=== PATIENT | female | born 1970 | race African-American/Black ===

== ENCOUNTER 2017-03-02 16:04 | Inpatient (IN) | payer MEDICAID ==
[~2017-03-02] VITALS: Ht 157.5 cm; Wt 42.0 kg
[2017-03-02 17:28] LABS: BASOPHIL % 0.5 % (0-2); PLATELET COUNT 215 x10^3mcL (130-400); RED CELL DISTRIBUTION WIDTH 13.8 % (11.5-14.5)
[2017-03-02 17:34] LABS: ALBUMIN 3.4 g/dL (3.4-5.0); BILIRUBIN TOTAL 0.2 mg/dL (0.20-1.00); CALCIUM 9.3 mg/dL (8.5-10.1); CARBON DIOXIDE 25.3 mmol/L (21-32); CREATININE SERUM 1.3 mg/dL (0.6-1.0); MAGNESIUM 1.8 mg/dL (1.8-2.4); TOTAL PROTEIN, SERUM 7.7 g/dL (6.4-8.2)
[2017-03-02 17:37] LABS: POTASSIUM SERUM 6.5 mmol/L (3.5-5.1)
[2017-03-02 19:26] LABS: microscopic required? YES; urine erythrocyte NEGATIVE (NEGATIVE)
[2017-03-02 20:27] VITALS: BP 82/48
[2017-03-02 20:53] VITALS: BP 91/60
[2017-03-02 21:57] LABS: CHOLESTEROL/HDL RATIO 3.7; PHOSPHOROUS 5.5 mg/dL (2.5-4.9)
[2017-03-02 21:59] LABS: T3 TOTAL 1.54 ng/mL
[2017-03-02 22:06] LABS: FREE T4 0.96 ng/dL (0.76-1.46); FREE THYROXINE INDEX 2.3 ug/dL (1.4-4.5); T4(THYROXINE) 8.2 ug/dL (4.7-13.3)
[2017-03-02 22:47] LABS: CALCIUM 8.9 mg/dL (8.5-10.1); CARBON DIOXIDE 25.7 mmol/L (21-32); CREATININE SERUM 1.1 mg/dL (0.6-1.0); POTASSIUM SERUM 4.7 mmol/L (3.5-5.1)
[2017-03-03] VITALS (8 sets, daily range): BP systolic 73–148; BP diastolic 36–66; Ht 157.5 cm; Wt 42.0 kg
[2017-03-03 06:31] LABS: CALCIUM 8.6 mg/dL (8.5-10.1); CARBON DIOXIDE 23.4 mmol/L (21-32); CHLORIDE SERUM 104 mmol/L (98-107); GFR1 > 60 mL/min; GLUCOSE SERUM 80 mg/dL (74-106); PHOSPHOROUS 4.2 mg/dL (2.5-4.9); POTASSIUM SERUM 4.9 mmol/L (3.5-5.1); SODIUM SERUM 134 mmol/L (136-145)
[2017-03-03 10:13] LABS: AMPHETAMINE QUAL UR POSITIVE (NEG <=1000)
[2017-03-04] VITALS (9 sets, daily range): BP systolic 73–109; BP diastolic 35–74
[2017-03-04 05:10] LABS: BASOPHIL % 0.6 % (0-2); PLATELET COUNT 198 x10^3mcL (130-400); RED CELL DISTRIBUTION WIDTH 13.4 % (11.5-14.5)
[2017-03-04 05:29] LABS: CALCIUM 8.2 mg/dL (8.5-10.1); CARBON DIOXIDE 23.9 mmol/L (21-32); CHLORIDE SERUM 105 mmol/L (98-107); CREATININE SERUM 0.7 mg/dL (0.6-1.0); GFR1 > 60 mL/min; GLUCOSE SERUM 97 mg/dL (74-106); MAGNESIUM 1.4 mg/dL (1.8-2.4); PHOSPHOROUS 4.2 mg/dL (2.5-4.9); POTASSIUM SERUM 4.3 mmol/L (3.5-5.1); SODIUM SERUM 135 mmol/L (136-145)
[2017-03-05] VITALS (10 sets, daily range): BP systolic 65–138; BP diastolic 28–84
[2017-03-05 07:10] LABS: CALCIUM 7.8 mg/dL (8.5-10.1); CARBON DIOXIDE 23.1 mmol/L (21-32); CHLORIDE SERUM 105 mmol/L (98-107); GFR1 > 60 mL/min; GLUCOSE SERUM 118 mg/dL (74-106); MAGNESIUM 1.5 mg/dL (1.8-2.4); PHOSPHOROUS 3.4 mg/dL (2.5-4.9); POTASSIUM SERUM 4.5 mmol/L (3.5-5.1); SODIUM SERUM 134 mmol/L (136-145)
[2017-03-05 07:54] LABS: BASOPHIL % 0.2 % (0-2); PLATELET COUNT 147 x10^3mcL (130-400); RED CELL DISTRIBUTION WIDTH 13.8 % (11.5-14.5)
[2017-03-05] MEDS ORDERED: LAC PO (12:20)
[2017-03-05] MEDS ORDERED: SYN25 PO (12:21)
[2017-03-05] MEDS ORDERED: LEVAQUIN750 MG PO (12:29)
[2017-03-05] MEDS ORDERED: CLINDAMYCIN HC300 MG PO (12:30)
[2017-03-06 05:53] VITALS: BP 83/47
[2017-03-06 07:13] LABS: BASOPHIL % 0.8 % (0-2); PLATELET COUNT 181 x10^3mcL (130-400); RED CELL DISTRIBUTION WIDTH 13.7 % (11.5-14.5)
[2017-03-06 07:24] LABS: CALCIUM 8.4 mg/dL (8.5-10.1); CARBON DIOXIDE 26.1 mmol/L (21-32); CREATININE SERUM 1.1 mg/dL (0.6-1.0); MAGNESIUM 2.4 mg/dL (1.8-2.4); PHOSPHOROUS 3.7 mg/dL (2.5-4.9); POTASSIUM SERUM 4.8 mmol/L (3.5-5.1)
[2017-03-06 09:55] VITALS: BP 88/40
[2017-03-06 11:53] VITALS: BP 88/40
[2017-03-06 13:00] VITALS: BP 79/41
== END 2017-03-06 16:09 | disposition home health service (06) | DRG 720 ==
LOC: ED 16:04 → DU 18:35 → IC 03-03 16:57 → DU 03-04 15:45
PROVIDERS: Emergency Medicine; Family Medicine; ADMIT Family Medicine
PROC: 05HM33Z Insertion of Infusion Device into Right Internal Jugular Vein, Percutaneous Approach (ICD-10-PCS; principal; 2017-03-03)
PROC: B543ZZA Ultrasonography of Right Jugular Veins, Guidance (ICD-10-PCS; 2017-03-03)
DX: A41.9 Sepsis, unspecified organism (principal); N17.0 Acute kidney failure with tubular necrosis; J69.0 Pneumonitis due to inhalation of food and vomit; R65.21 Severe sepsis with septic shock; G92 Toxic encephalopathy; N39.0 Urinary tract infection, site not specified; T43.621A Poisoning by amphetamines, accidental (unintentional), initial encounter; E87.1 Hypo-osmolality and hyponatremia; E87.5 Hyperkalemia; E83.39 Other disorders of phosphorus metabolism; R55 Syncope and collapse; K70.30 Alcoholic cirrhosis of liver without ascites; E03.9 Hypothyroidism, unspecified; D64.9 Anemia, unspecified; F15.10 Other stimulant abuse, uncomplicated; F10.10 Alcohol abuse, uncomplicated; F17.210 Nicotine dependence, cigarettes, uncomplicated; Z91.19 Patient's noncompliance with other medical treatment and regimen; Z56.0 Unemployment, unspecified; Z96.643 Presence of artificial hip joint, bilateral; Y92.018 Other place in single-family (private) house as the place of occurrence of the external cause
CPT/HCPCS: 36556; 82962; 83880; 84439; 97110-GP; 97116-GP; 97530-GP; G0480; J0696; J1170; J1642; J1815; J2001; J2060; J2543; J3475; J3490; J7030; J7040; Q0092